=== PATIENT | male | born 1980 | race American Indian/Alaskan Native ===

== ENCOUNTER 2020-10-20 15:19 | Emergency (ER) | payer OTHER ==
[2020-10-20 19:17] VITALS: BP 161/106
--- NOTE | 2020-10-20 20:04 | Emergency Department Report ---
ED General Adult HPI - General Chief complaint: Pain General Stated complaint: HEADACHE/BODY PAIN Time Seen by Provider: 10/20/20 19:47 Source: patient Mode of arrival: Ambulatory Limitations: No Limitations - History of Present Illness Initial comments: 40-year-old male patient with history of tobacco use presents to the emergency department with complaints of subjective fever, productive cough, myalgias, and headache starting 2 days ago. No known sick contacts. No current steroid or antibiotic use. No recent travel. Patient did not receive his COVID-19 vaccine series. He has been taking [id number] Tylenol and cough/cold remedies with limited relief. Highest temperature at home was 99 degrees orally. Last dose of medication was over 18 hours earlier. Denies rash, neck stiffness, seizure, syncope, chest pain, wheezing, vomiting, diarrhea. Denies all other complaints at this time. - Related Data Previous Rx's Medication Instructions Recorded Last Taken Type Diphenhydramine HCl [Benadryl 25 mg PO Q6H #20 tablet 11/19/15 Unknown Rx Allergy TAB] Hydrocortisone 1% [Hydrocortisone 1 applicatio TP TID #1 tube 11/19/15 Unknown Rx 1% CREAM] Allergies Allergy/AdvReac Type Severity Reaction Status Date / Time No Known Allergies Allergy Unverified 11/18/15 22:33 ED Review of Systems ROS: Stated complaint: HEADACHE/BODY PAIN Other details as noted in HPI Other: GENERAL: Positive for subjective fever. ENT: Negative for ear pain, difficulty hearing, sore throat, nasal congestion, epistaxis. CARDIOVASCULAR: Negative for chest pain, palpitations, lower extremity swelling. PULMONARY: Positive for cough. GASTROINTESTINAL: Negative for abdominal pain, nausea, vomiting, diarrhea, constipation. MUSCULOSKELETAL: Positive for myalgias. NEUROLOGICAL: Positive for headache. INTEGUMENTARY: Negative for erythema, rash, diaphoresis, laceration, ecchymosis. HEMATOLOGICAL: Negative for hemoptysis, hematemesis, hematochezia, hematuria. PSYCHIATRIC: Negative for hallucinations, suicidal ideation, homicidal ideation, anxiety, depression. ED Past Medical Hx - Past Medical History Previous Medical History?: No - Surgical History Past Surgical History?: No - Social History Smoking Status: Current Every Day Smoker Substance Use Type: None - Medications Home Medications: Home Medications Medication Instructions Recorded Confirmed Last Taken Type Diphenhydramine HCl [Benadryl 25 mg PO Q6H #20 tablet 11/19/15 Unknown Rx Allergy TAB] Hydrocortisone 1% [Hydrocortisone 1 applicatio TP TID #1 tube 11/19/15 Unknown Rx 1% CREAM] ED Physical Exam - General Limitations: No Limitations - Other Other exam information: General: Awake and alert. No acute distress. Head: Atraumatic, normocephalic. Eyes: EOMI. Pupils are equal and round. Normal sclera and conjunctiva. ENT: Oral mucosa is moist. Normal pharyngeal exam. Neck: Supple. No lymphadenopathy. Pulmonary: No respiratory distress. Clear to auscultation bilaterally. Cardiac: Regular rate and rhythm. Pulses are palpable and equal bilaterally. No lower extremity cyanosis or edema. Skin: Warm and dry. No rashes. Abdomen: Soft, non-tender, non-protuberant. No guarding, rigidity, or rebound. Bowel sounds are normal. No organomegaly or masses noted. Back: Normal alignment. No CVA tenderness. Extremities: Symmetrical. Full range of motion intact. Neurological: Alert and oriented, appropriately interactive, no focal deficits. Psych: Cooperative. Appropriate mood and affect. Speech is evenly metered. Thoughts are logically construed. ED Course Vital Signs 10/20/20 10/20/20 19:16 22:00 Temperature 99.7 F H 98.7 F Pulse Rate 98 H 88 Respiratory 18 18 Rate Blood Pressure 161/106 [Right] O2 Sat by Pulse 99 97 Oximetry ED Medical Decision Making - Medical Decision Making Differential diagnosis including but not limited to: pneumonia, influenza, pertussis, viral upper respiratory infection On reevaluation, patient remains stable. No hypoxia, no respiratory distress, well-hydrated, afebrile. Chest x-ray shows atelectasis without evidence of pneumonia. COVID-19 testing is currently unavailable at this facility. History and exam findings suggestive of viral illness. No clinical indication for further diagnostic work-up on an emergent basis at this time. Patient will be discharged home with instructions for symptomatic treatment and referred to primary care provider for close outpatient follow-up. Patient expressed understanding and is agreeable to plan of care. Smoking cessation advised. Disease transmission precautions discussed. Strict return precautions provided. Repeat exam is unremarkable and benign. History, exam, diagnostic testing, and current condition do not suggest worrisome pathology to warrant further testing, continued ED treatment, admission, or surgical evaluation at this point. Given the low probability of a significant medical illness, it would be more likely to result in harm than benefit to perform further testing at this stage. Discussed findings, presumptive diagnosis, need for follow-up and specific signs/symptoms that should prompt immediate return to the emergency department. Instructions were explained in detail to the patient in addition to giving written discharge information. Patient expressed understanding and was given the opportunity to ask questions, all of which were satisfactorily answered prior to discharge home. Critical care attestation.: If time is entered above; I have spent that time in minutes in the direct care of this critically ill patient, excluding procedure time. ED Disposition Clinical Impression: Viral upper respiratory tract infection with cough Disposition: DC-01 TO HOME OR SELFCARE Is pt being admited?: No Does the pt Need Aspirin: No Condition: Stable Instructions: Viral Respiratory Infection Additional Instructions: Take Tylenol every 4 hours and Motrin every 8 hours as needed for pain. Use [id number] cough/cold suppressants as needed. Honey is an excellent natural cough suppressant. Rest. Drink plenty of fluids. Wash hands frequently to prevent disease transmission. Do not share food or drinks with others. Follow-up with primary care provider this week. Call tomorrow to schedule appointment. See referral information below. Return to the emergency department immediately for new or worsening symptoms. Referrals: GREY MAJANO MD [Staff Physician] - 3-[address] [facility] [Provider Group] - 3-5 Days Forms: Work/School Release Form(ED) Time of Disposition: 21:30
--- NOTE | 2020-10-20 20:35 | XRay Report ---
CHEST PA AND LATERAL VIEWS INDICATION: fever/cough/bodyaches. COMPARISON: None. FINDINGS: Support devices: None. Heart: Within normal limits. Lungs/Pleura: Given the low lung volumes, mild bibasilar opacities are could be atelectatic. No pleur al abnormality. IMPRESSION: 1. Bibasilar opacities may be atelectatic given the low lung volumes. Signer Name: Felice Gonsalves MD Signed: 10/20/2020 8:31 PM Workstation Name: [id number]
== END 2020-10-20 22:00 | disposition home or self-care (01) ==
LOC: ED 15:19
DX: J06.9 Acute upper respiratory infection, unspecified (principal); R05 Cough; F17.200 Nicotine dependence, unspecified, uncomplicated; M79.10 Myalgia, unspecified site
CPT/HCPCS: 71046; 99283